=== PATIENT | male | born 1955 | race Caucasian/White ===

== ENCOUNTER 2020-07-21 08:40 | Day surgery (SDC) | payer BC ==
[~2020-07-21] VITALS: Ht 172.7 cm; Wt 87.8 kg
[~2020-07-21 08:40] MED LIST: AMLO10 PO; ATEN25 PO; ATEN50 PO; OMEP20ER PO; POTCIT10 PO; TAMS.4ER PO
--- NOTE | 2020-07-21 14:37 | NUR ---
PT SITTING UP IN BED, A/O X 4, PLEASANT/COOPERATIVE, DENIES PAIN, IS ABLE TO LIFT LEG/WIGGLE TOES AND FEET, FULL SENSATION. PT TOLERATING PO INTAKE. IS ORIENTED TO ROOM/CALL LIGHT. POST OP VS COMMENCED AND STABLE. OPERATIVE SITE C/D/I WITH JONES WRAP, NO SHADOWING. CRYO/TEDS/PAS IN PLACE.
--- NOTE | 2020-07-21 15:42 | NUR ---
PT in with patient and spouse.
--- NOTE | 2020-07-21 17:08 | NUR ---
PT has worked with physical therapy with spouse present. PT is tolerating PO intake. post op VSS and continuining. Operative limb/site WNL, warm/pink to baseline, dressing c/d/i. pt sitting in chair with cryo in place.
[2020-07-22 04:50] LABS: BASOPHILS ABSOLUTE AUTO 0.02 K/mm3 (0.00-0.23); BASOPHILS PERCENT AUTO 0 % (0-2); EOSINOPHILS ABSOLUTE AUTO 0.01 K/mm3 (0.00-0.68); EOSINOPHILS PERCENT AUTO 0 % (0-6); Hematocrit 38.1 % (37.0-53.0); Hemoglobin 13.5 g/dL (13.5-17.5); IMMATURE GRAN ABSOLUTE AUTO 0.06 K/mm3 (0.00-0.10); IMMATURE GRAN PERCENT AUTO 1 % (0-1); LYMPHOCYTES ABSOLUTE AUTO 1.24 K/mm3 (0.84-5.20); LYMPHOCYTES PERCENT AUTO 10 % (21-46); MONOCYTES ABSOLUTE AUTO 1.04 K/mm3 (0.16-1.47); MONOCYTES PERCENT AUTO 8 % (4-13); Mean Corpuscular HGB 29.9 pg (26.0-34.0); Mean Corpuscular HGB Conc 35.4 g/dL (31.5-36.5); Mean Corpuscular Volume 85 fL (80-100); Mean Platelet Volume 10.6 fL (9.1-12.4); NEUTROPHILS ABSOLUTE AUTO 10.55 K/mm3 (1.96-9.15); NEUTROPHILS PERCENT AUTO 82 % (41-73); Platelet Count 223 K/mm3 (150-400); RDW Coefficient Variation 13.3 % (11.7-14.2); RDW Standard Deviation 41.3 fL (35.1-46.3); Red Blood Cell Count 4.51 M/mm3 (4.30-5.90); White Blood Cell Count 12.92 K/mm3 (4.00-11.30)
--- NOTE | 2020-07-22 04:56 | NUR ---
SHIFT SUMMARY SITTING UP IN CHAIR AT BEDSIDE WITH BLE ELEVAED, HAS NOT RESTED WELL THIS SHIFT. AAO X4, JHAVERI, FOLLOWS ALL COMMANDS. POD #1 FOR LEFT TKA. AREAS COVERED WITH JONES WRAP WITHOUT SHADOWING NOTED. CONTINENT OF BOWEL AND BLADDER, AMBULATES TO COMMODE WITH SBA USING FWW/GB. PAIN MANAGED PER EMAR. NO FURTHER CHANGES NOTED THIS SHIFT. DENIES FURTHER NEEDS AT THIS TIME. SAFETY MEASURES IN PLACE. WILL CONTINUE TO MONITOR AND ADDRESS CHANGES AND NEEDS THEY ARISE. WILL GIVE HAND OFF TO ONCOMING SHIFT USING SBAR DURING BEDSIDE REPORT.
[2020-07-22 05:06] LABS: Anion Gap 5 mmol/L (6-16); Blood Urea Nitrogen 16 mg/dL (8-24); Bun/Creatinine Ratio 17.8 (12.0-20.0); CO2, Blood 28 mmol/L (21-32); Calcium, Blood 8.4 mg/dL (8.5-10.1); Chloride, Blood 104 mmol/L (98-108); Glomerular Filtration Rate >60 (60-); Glucose, Blood 124 mg/dL (70-99); Potassium, Blood 3.8 mmol/L (3.5-5.5); Sodium, Blood 137 mmol/L (136-145)
[2020-07-22] MEDS ORDERED: ASPI81CH PO (09:30)
[2020-07-22] MEDS ORDERED: ROXICODONE5 MG PO (09:31)
[2020-07-22] MEDS ORDERED: PROM25 PO (09:32)
--- NOTE | 2020-07-22 10:09 | NUR ---
0950 PROVIDED PT W/ DISCHARGE INSTRUCTIONS AND TEACHING, PT D/C HOME W/ . I TRANSPORTED PT VIA WHEELCHAIR TO 'S VEHICLE AT THE SOUTH ENTRANCE. PT ENTERED VEHICLE SAFELY.
--- NOTE | 2020-07-22 16:19 | NUR ---
07/22/20 1619 Sary Corona VERIFICATIONS: EDIT CHART.
== END 2020-07-22 09:58 | disposition home or self-care (01) ==
LOC: ORSCMMR 08:40 → SURS 13:29 → ORSCMMR 14:45 → ORD 14:45 → ORSCMMR 07-22 09:58 → SURS 07-22 09:58
PROVIDERS: Orthopaedic Surgery
PROC: 8E0YXBZ Computer Assisted Procedure of Lower Extremity (ICD-10-PCS; principal; 2020-07-21 11:00)
PROC: 0SRD0J9 Replacement of Left Knee Joint with Synthetic Substitute, Cemented, Open Approach (ICD-10-PCS; principal; 2020-07-21 11:00)
DX: M17.12 Unilateral primary osteoarthritis, left knee (principal); I10 Essential (primary) hypertension; K21.9 Gastro-esophageal reflux disease without esophagitis; E78.5 Hyperlipidemia, unspecified; Z79.899 Other long term (current) drug therapy
CPT/HCPCS: 36415; 73560-LT; 80048; 83735; 85025; 97110; 97116; 97162; A9270; C1713; C1776; J0171; J0690; J0735; J1100; J1885; J2250; J2370; J2405; J2704; J2795; J3010; J7120

== ENCOUNTER 2020-10-16 07:09 | Emergency (ER) | payer MEDICARE ==
[~2020-10-16] VITALS: Ht 175.3 cm; Wt 87.1 kg
[~2020-10-16 07:09] MED LIST changes: +ASPI81CH PO; +PROM25 PO; +ROXICODONE5 MG PO
[2020-10-16 08:18] LABS: Source, Urine Clean Catch
[2020-10-16 08:31] LABS: BASOPHILS ABSOLUTE AUTO 0.04 K/mm3 (0.00-0.23); BASOPHILS PERCENT AUTO 1 % (0-2); EOSINOPHILS ABSOLUTE AUTO 0.24 K/mm3 (0.00-0.68); EOSINOPHILS PERCENT AUTO 4 % (0-6); Hematocrit 46.8 % (37.0-53.0); Hemoglobin 16.2 g/dL (13.5-17.5); IMMATURE GRAN ABSOLUTE AUTO 0.01 K/mm3 (0.00-0.10); IMMATURE GRAN PERCENT AUTO 0 % (0-1); LYMPHOCYTES ABSOLUTE AUTO 1.92 K/mm3 (0.84-5.20); LYMPHOCYTES PERCENT AUTO 29 % (21-46); MONOCYTES ABSOLUTE AUTO 0.68 K/mm3 (0.16-1.47); MONOCYTES PERCENT AUTO 10 % (4-13); Mean Corpuscular HGB 29.6 pg (26.0-34.0); Mean Corpuscular HGB Conc 34.6 g/dL (31.5-36.5); Mean Corpuscular Volume 85 fL (80-100); Mean Platelet Volume 10.5 fL (9.1-12.4); NEUTROPHILS ABSOLUTE AUTO 3.85 K/mm3 (1.96-9.15); NEUTROPHILS PERCENT AUTO 57 % (41-73); Platelet Count 262 K/mm3 (150-400); RDW Coefficient Variation 13.1 % (11.7-14.2); RDW Standard Deviation 40.8 fL (35.1-46.3); Red Blood Cell Count 5.48 M/mm3 (4.30-5.90); White Blood Cell Count 6.74 K/mm3 (4.00-11.30)
[2020-10-16 08:34] LABS: Appearance, Urine Clear (Clear); Bilirubin, Urine Neg (Neg); Blood, Urine 1+ (Neg); Color, Urine Yellow (P-Yellow); Glucose Qualitative, Urine Neg (Neg); Ketones, Urine Neg (Neg); Leukocyte Esterase, Urine 1+ (Neg); Nitrite, Urine Neg (Neg); Protein, Urine 3+ (Neg); Specific Gravity, Urine 1.015 (1.003-1.022); Urobilinogen, Urine NORM (Normal)
[2020-10-16 08:52] LABS: Alanine Aminotransfer (ALT/SGP 35 U/L (12-78); Albumin, Blood 3.6 g/dL (3.4-5.0); Albumin/Globulin Ratio 0.8 (0.8-1.8); Alk Phos 99 U/L (50-136); Anion Gap 6 mmol/L (6-16); Aspartate Aminotrans (AST/SGOT 16 U/L (12-37); Bilirubin, Total 0.9 mg/dL (0.1-1.0); Blood Urea Nitrogen 9 mg/dL (8-24); Bun/Creatinine Ratio 10.5 (12.0-20.0); CO2, Blood 27 mmol/L (21-32); Calcium, Blood 8.9 mg/dL (8.5-10.1); Chloride, Blood 107 mmol/L (98-108); Creatinine, Blood 0.85 mg/dL (0.60-1.20); Globulin, Blood 4.4 g/dL (2.2-4.0); Glomerular Filtration Rate >60 (60-); Glucose, Blood 107 mg/dL (70-99); Potassium, Blood 3.6 mmol/L (3.5-5.5); Sodium, Blood 140 mmol/L (136-145); Troponin I <0.015 ng/mL (0.000-0.040)
[2020-10-16 08:56] LABS: Bacteria Rare /hpf; Squamous Epithelial Cells Not Seen /hpf (Few)
== END 2020-10-16 10:03 | disposition home or self-care (01) ==
LOC: ER 07:09
PROVIDERS: Emergency Medicine
DX: I49.3 Ventricular premature depolarization (principal); R07.9 Chest pain, unspecified; I10 Essential (primary) hypertension; Z88.6 Allergy status to analgesic agent; Z87.891 Personal history of nicotine dependence
CPT/HCPCS: 36415; 71045; 80053; 81001; 84484; 85025; 87086; 93005; 93010; 99285-25

== ENCOUNTER → 2020-10-27 | Outpatient (CLI) | payer MEDICARE ==
[2020-10-27 16:41] LABS: Appearance, Urine Clear (Clear); Bilirubin, Urine Neg (Neg); Blood, Urine 2+ (Neg); Color, Urine Yellow (P-Yellow); Glucose Qualitative, Urine Neg (Neg); Ketones, Urine Neg (Neg); Leukocyte Esterase, Urine 1+ (Neg); Nitrite, Urine Neg (Neg); Protein, Urine 3+ (Neg); Urobilinogen, Urine NORM (Normal)
[2020-10-27 17:13] LABS: Bacteria Mod /hpf; Red Blood Cells, Urine 0-2 /hpf (0-2); Squamous Epithelial Cells Rare /hpf (Few)
== END | disposition home or self-care (01) ==
LOC: LAB SHORT 14:20 → LAB 14:20
PROVIDERS: Family Medicine
DX: R31.9 Hematuria, unspecified (principal)
CPT/HCPCS: 81001; 87086

== ENCOUNTER → 2022-03-21 | Outpatient (CLI) | payer BC ==
[2022-03-21 10:40] LABS: Phosphorus, Urine 38.2 mg/dL (20.0-60.0)
[2022-03-21 10:54] LABS: Uric Acid, Urine 31.6 mg/dL (7.5-49.5)
[2022-03-21 11:05] LABS: Calcium, Urine 15.3 mg/dL (< 17.5); Calcium, Urine Calculation 443.7 mg/24hrs (42.0-353.0); Creatinine Urine 56.9 mg/dL (27.00-270.00); Protein, Urine Quantitative 38.2 mg/dL (0.0-11.9)
== END | disposition home or self-care (01) ==
LOC: LAB SHORT 07:00 → LAB 07:00
PROVIDERS: Internal Medicine Nephrology
DX: N18.2 Chronic kidney disease, stage 2 (mild) (principal); D63.1 Anemia in chronic kidney disease; N25.81 Secondary hyperparathyroidism of renal origin; E29.1 Testicular hypofunction; R76.9 Abnormal immunological finding in serum, unspecified; R94.5 Abnormal results of liver function studies; R94.6 Abnormal results of thyroid function studies
CPT/HCPCS: 81050; 82043; 82340; 82507; 82570; 83945; 84105; 84133; 84156; 84300; 84560

== ENCOUNTER → 2022-04-23 | Outpatient (CLI) | payer BC, OTHER ==
[2022-04-23 16:36] LABS: Bun/Creatinine Ratio 15.1 (12.0-20.0); Calcium, Blood 9.3 mg/dL (8.5-10.1); Creatinine, Blood 0.86 mg/dL (0.60-1.20); Potassium, Blood 3.5 mmol/L (3.5-5.5)
== END | disposition home or self-care (01) ==
LOC: LAB SHORT 16:22 → LAB 16:22
PROVIDERS: Physician Assistant Medical
DX: R07.89 Other chest pain (principal)
CPT/HCPCS: 80048; 84484

== ENCOUNTER → 2023-04-27 | Outpatient (CLI) | payer BC, OTHER ==
[2023-04-27 12:15] LABS: Creatinine Urine 73.6 mg/dL (27.00-270.00); Protein, Urine Quantitative 53.1 mg/dL (0.0-11.9)
== END ==
LOC: LAB SHORT 09:06 → LAB FUT 04-22 10:20
PROVIDERS: Internal Medicine Nephrology
DX: N18.30 Chronic kidney disease, stage 3 unspecified (principal); D63.1 Anemia in chronic kidney disease; N25.81 Secondary hyperparathyroidism of renal origin; E55.9 Vitamin D deficiency, unspecified; E29.1 Testicular hypofunction; R76.9 Abnormal immunological finding in serum, unspecified; R94.5 Abnormal results of liver function studies; G60.9 Hereditary and idiopathic neuropathy, unspecified
CPT/HCPCS: 81050; 82043; 82570; 84156

== ENCOUNTER → 2023-06-22 | Outpatient (CLI) | payer BC, OTHER ==
[2023-06-22 11:26] LABS: Creatinine Urine 65.6 mg/dL (27.00-270.00); Protein, Urine Quantitative 37.1 mg/dL (0.0-11.9)
== END ==
LOC: LAB SHORT 08:40 → LAB 08:40
PROVIDERS: Internal Medicine Nephrology
DX: N18.30 Chronic kidney disease, stage 3 unspecified (principal); D63.1 Anemia in chronic kidney disease; N25.81 Secondary hyperparathyroidism of renal origin; E55.9 Vitamin D deficiency, unspecified; E78.00 Pure hypercholesterolemia, unspecified; R76.9 Abnormal immunological finding in serum, unspecified; R94.5 Abnormal results of liver function studies; R94.6 Abnormal results of thyroid function studies; D51.8 Other vitamin B12 deficiency anemias
CPT/HCPCS: 81050; 82043; 82570; 84156

== ENCOUNTER 2024-02-12 06:41 | Day surgery (SDC) | payer OTHER ==
[~2024-02-12] VITALS: Ht 175.3 cm; Wt 91.0 kg
[2024-02-12] VITALS (11 sets, daily range): BP systolic 139–173; BP diastolic 77–100
[~2024-02-12 06:41] MED LIST changes: +[UNRECOGNIZED DRUG - OTHER] PO
[2024-02-12] MEDS ORDERED: Heparin Sodium 1000 Units/ML 10ML MDV ONE ×3 (06:50→09:48)
[2024-02-12] MEDS ORDERED: NS 1,000 ML IV ONE ×2 (06:50→07:36)
[2024-02-12] MEDS ORDERED: MAGNESIUM COMP300 MG PO (07:18)
[2024-02-12] MEDS ORDERED: FISH OIL 1,0001 EA10 PO (07:20)
[2024-02-12] MEDS ORDERED: Midazolam HCl 1MG / ML 2ML Vial ONE (07:36)
[2024-02-12] MEDS ORDERED: FentaNYL Citrate 50 MCG/ML 2 ML Injection ONE (07:36)
[2024-02-12 07:51] LABS: Hematocrit 44.5 % (37.0-53.0); Hemoglobin 16.2 g/dL (13.5-17.5); Mean Corpuscular HGB 30.6 pg (26.0-34.0); Mean Corpuscular HGB Conc 36.4 g/dL (31.5-36.5); Mean Corpuscular Volume 84 fL (80-100); Mean Platelet Volume 10.4 fL (9.1-12.4); Platelet Count 205 K/mm3 (150-400); RDW Coefficient Variation 13.3 % (11.7-14.2); Red Blood Cell Count 5.29 M/mm3 (4.30-5.90); White Blood Cell Count 4.99 K/mm3 (4.00-11.30)
[2024-02-12 08:02] LABS: International Normalized Ratio 0.96; Prothrombin Time Results 10.3 Sec (9.7-11.5)
[2024-02-12 08:06] LABS: Bun/Creatinine Ratio 14.2 (12.0-20.0); Calcium, Blood 8.9 mg/dL (8.5-10.1); Creatinine, Blood 0.92 mg/dL (0.60-1.20); Potassium, Blood 3.6 mmol/L (3.5-5.5)
[2024-02-12] MEDS ORDERED: NS 50 ML IV ONE (08:38)
[2024-02-12] MEDS ORDERED: CeFAZolin Sodium 2,000 MG VIAL ONE (08:38)
[2024-02-12] MEDS ORDERED: Nitroglycerin 2 MG/20 ML BTL ONE (09:11)
[2024-02-12] MEDS ORDERED: Lidocaine 2%-Epineph 1:100000 20 ML MDV ONE (10:06)
[2024-02-12] MEDS ORDERED: HydrALAZINE HCl 20 MG / ML 1ML Vial ONE ×2 (10:06→13:26)
--- NOTE | 2024-02-12 11:21 | NUR ---
DR DOMINGO IN ROOM DISCUSSING PLAN OF CARE. VSS. HEMAN. PT R FEMORAL SITE REMAINS C/D/I. S/O AT BEDSIDE
--- NOTE | 2024-02-12 12:20 | NUR ---
MANUAL PRESSURE HELD FOR 20 MINUTES TO R FEMORAL SITE AFTER BLEEDING NOTED. HEMOSTASIS OBTAINED. VSS. NADN. PT RESTING COMFORTABLY. PT S/O AT BEDSIDE. CALL LIGHT WITHIN REACH.
--- NOTE | 2024-02-12 13:04 | NUR ---
GROIN SOFT AND NON-TENDER PER PT. NO BLEEDING NOTED.
--- NOTE | 2024-02-12 13:40 | NUR ---
DR DOMINGO IN ROOM DISCUSSING PLAN OF CARE. PT R FEMORAL SITE REMAINS CLEAR. NO BLEEDING OR HEMATOMA NOTED. VSS. NADN. CONTINUING TO MONITOR
--- NOTE | 2024-02-12 14:01 | NUR ---
PT AND S/O VERBALIZES UNDERSTANDING WRITTEN AMD VERBAL INSTRUCTIONS. DENIES QUESTIONS. VSS. NADN. PT R FEMORAL SITE REMAINS C/D/I. NO BLEEDING OR HEMATOMA NOTED. PT IV DC'D. CATH INTACT. PRESSURE DSG APPLIED. PT DRESSES SELF WITHOUT DIFF. PT DC TO HOME VIA S/O BY WC.
== END 2024-02-12 14:10 | disposition home or self-care (01) ==
LOC: MHTC 06:41
PROVIDERS: Student in an Organized Health Care Education/Training Program
DX: M17.11 Unilateral primary osteoarthritis, right knee (principal); G89.29 Other chronic pain; Z87.891 Personal history of nicotine dependence; Z88.5 Allergy status to narcotic agent; Z91.048 Other nonmedicinal substance allergy status; Z79.899 Other long term (current) drug therapy
CPT/HCPCS: 37242; 75710; 76937; 80048; 85027; 85610; 99152; 99153; C1760; C1769; C1887; J0360; J0690; J1644; J2250; J3010; J7030; Q9967

== ENCOUNTER 2024-03-24 08:58 | Day surgery (SDC) | payer OTHER ==
[2024-03-24] VITALS (10 sets, daily range): BP systolic 127–146; BP diastolic 85–98
[~2024-03-24] VITALS: Ht 175.3 cm; Wt 91.4 kg
[~2024-03-24 08:58] MED LIST changes: +FISH OIL 1,0001 EA10 PO; +MAGNESIUM COMP300 MG PO
[2024-03-24] MEDS ORDERED: ASPI81CH PO (09:17)
[2024-03-24] MEDS ORDERED: HYDCHL25 PO (09:19)
[2024-03-24] MEDS ORDERED: Verapamil HCL 2.5 MG/ML 2ML Injection ONE (09:22)
[2024-03-24] MEDS ORDERED: Heparin Sodium 1000 Units/ML 10ML MDV ONE ×2 (09:23→10:24)
[2024-03-24] MEDS ORDERED: Nitroglycerin 2 MG/20 ML BTL ONE (09:23)
[2024-03-24] MEDS ORDERED: NS 250 ML IV ONE (09:23)
[2024-03-24] MEDS ORDERED: NS 1,000 ML IV ONE ×2 (09:23→09:44)
[2024-03-24] MEDS ORDERED: Aspirin 325 MG Tab ONE (09:30)
[2024-03-24] MEDS ORDERED: FentaNYL Citrate 50 MCG/ML 2 ML Injection ONE (09:44)
[2024-03-24] MEDS ORDERED: Midazolam HCl 1MG / ML 2ML Vial ONE (09:44)
--- NOTE | 2024-03-24 10:59 | NUR ---
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 PT AWAKE AND ALERT UP IN CHAIR. PT DENIES COMPLAINTS. RIGHT TR BAND SITE REVIEWED W TECH. 8CC TO BAND. SITE STABLE W/O SWELLING, TENDERNESS, OR BLEEDING. PATIENT SIPPING ON COFFEE.
--- NOTE | 2024-03-24 11:20 | NUR ---
dr dunbar at bedside discussing porcedural finding and future plan of care w/ pt.
--- NOTE | 2024-03-24 12:47 | NUR ---
AIR REMOVED FROM TR BAND OVER 30MIN. AIR COMPLETELY REMOVED BY 1220. VERBAL AND WRITTEN DISCHARGE INFORMATION GIVEN TO PATIENT AND PT'S WITH CLEAR UNDERSTANDING. BIO PATCH PLACED PER DR BOYCE FOR ECTOPY. VSS. PT MINNIE FLUIDS/FOOD. PT DENIES COMPLAINTS.
--- NOTE | 2024-03-24 13:10 | NUR ---
TR BAND REMOVED, SITE STABLE W/O HEMATOMA, SWELLING, TENDERNESS, OR BLEEDING. DRSG PLACED. WRIST IMMOBILIZER PLACED. PT DC'D IN STABLE CONDITION IN CARE OF PT'S AT 1310.
== END 2024-03-24 13:24 | disposition home or self-care (01) ==
LOC: MHTC 08:58
DX: I25.118 Atherosclerotic heart disease of native coronary artery with other forms of angina pectoris (principal); I47.20 Ventricular tachycardia, unspecified; I10 Essential (primary) hypertension; E78.5 Hyperlipidemia, unspecified; Z88.5 Allergy status to narcotic agent; Z88.8 Allergy status to other drugs, medicaments and biological substances
CPT/HCPCS: 36415; 76937; 80048; 85007; 85027; 85610; 93246; 93454; 93458; 99152; 99153; A9270; C1769; C1887; C1894; J1644; J2250; J3010; J7030; J7050; Q9967

== ENCOUNTER → 2024-05-05 | Outpatient (CLI) | payer OTHER ==
[~2024-05-05] MED LIST changes: +ATOR40TA PO; +HYDCHL12.5 PO; +HYDCHL25 PO
[2024-05-05 16:20] LABS: Creatinine Urine 64.4 mg/dL (27.00-270.00); Protein, Urine Quantitative 22.3 mg/dL (0.0-11.9)
== END ==
LOC: LAB 07:00 → LAB SHORT 07:00
PROVIDERS: Internal Medicine Nephrology
DX: D51.8 Other vitamin B12 deficiency anemias (principal); N18.4 Chronic kidney disease, stage 4 (severe); D63.1 Anemia in chronic kidney disease; N25.81 Secondary hyperparathyroidism of renal origin; E55.9 Vitamin D deficiency, unspecified; E78.00 Pure hypercholesterolemia, unspecified; R76.9 Abnormal immunological finding in serum, unspecified; R94.5 Abnormal results of liver function studies; G50.9 Disorder of trigeminal nerve, unspecified; D50.9 Iron deficiency anemia, unspecified
CPT/HCPCS: 81050; 82043; 82570; 84156

== ENCOUNTER 2024-05-06 06:39 | Day surgery (SDC) | payer OTHER ==
[2024-05-06] VITALS (17 sets, daily range): BP systolic 145–179; BP diastolic 80–108
[~2024-05-06] VITALS: Ht 175.3 cm; Wt 88.9 kg
[~2024-05-06 06:39] MED LIST changes: -HYDCHL12.5 PO
[2024-05-06] MEDS ORDERED: HYDCHL12.5 PO (06:57)
[2024-05-06] MEDS ORDERED: NS 100 ML IV ONE (07:05)
[2024-05-06] MEDS ORDERED: NS 250 ML IV ONE (07:05)
[2024-05-06] MEDS ORDERED: Heparin Sodium 1000 Units/ML 10ML MDV ONE (07:05)
[2024-05-06] MEDS ORDERED: NS 1,000 ML IV ONE ×2 (07:05→07:27)
[2024-05-06] MEDS ORDERED: FentaNYL Citrate 50 MCG/ML 2 ML Injection ONE (07:27)
[2024-05-06] MEDS ORDERED: Midazolam HCl 1MG / ML 2ML Vial ONE (07:27)
--- NOTE | 2024-05-06 09:15 | NUR ---
PATIENT TO RECOVERY ROOM AT 0904 S/P RIGHT GENICULATE ARTERY EMBOLIZATION. PROCEDURE UNSUCCESSFUL, UNABLE TO FIND PATHWAY TO PAIN AREA. PT AWAKE AND ALERT, DENIES COMPLAINTS. PT SUPINE. RIGHT GROIN WITH ANGIOSEAL. RIGHT GROIN SOFT WITHOUT HEMATOMA, TENDERNESS, BLEEDING, SWELLING. PT BRADYCARDIC IN HIGH 40'S, PT IN 50'S PRIOR TO PROCEDURE. BP SLIGHTLY HYPERTENSIVE BUT STABLE W SBP 150'S. SATS >90% ON RA. +2 PULSES TO BLE. PT'S AT BEDSIDE.
[2024-05-06] MEDS ORDERED: HydrALAZINE HCl 20 MG / ML 1ML Vial ONE (11:38)
[2024-05-06] MEDS ORDERED: HydrALAZINE HCl 20 MG / ML 1ML Vial IV ONE (11:55)
--- NOTE | 2024-05-06 12:03 | NUR ---
GROIN CHECKED EVERY 15MIN WITHOUT CHANGE TO GROIN. PT UP TO BATHROOM AT 1105. GROIN STABLE AFTER USING RESTROOM. VERBAL AND WRITTEN DC INSTRUCTIONS GIVEN WITH CLEAR UNDERSTANDING TO PATIENT AND PATIENTS AT 1110. IV DC'D INTACT AT 1115. GROIN CHECKED PRIOR TO PATIENT DRESSING. SMALL HEMATOMA NOTED. PRESSURE HELD OVER SITE. DR DOMINGO NOTIFIED. DR DOMINGO AT BEDSIDE, SITE CHECKED WITH ULTRASOUND. PRESSURE HELD BY DR DOMINGO. PT C/O GROIN DISCOMFORT /10. BP ELEVATED. IV RESTARTED TO LEFT AC. HYDRALAZINE 5MG IV GIVEN PER DR DOMINGO AT 1150. RIGHT GROIN SOFT WITH SMALL KNOT POST HOLD. DR DOMINGO TO CHECK GROIN AGAIN AT 1215. BP 154/93.
--- NOTE | 2024-05-06 13:08 | NUR ---
NO CHANGE TO RIGHT GROIN SITE. SMALL KNOT HAS NOT CHANGED IN SIZE. AREA SURROUNDING SMALL KNOT SOFT.
--- NOTE | 2024-05-06 13:58 | NUR ---
PATIENT HAS HAD BED AT 30 DEGREES X 30MIN, RIGHT GROIN REMAINS UNCHANGED. SBP'S 150'S. HR HIGH 40'S TO 50'S. PATIENT C/O MILD TENDERNESS THAT HAS IMPROVED FROM A 5 TO A 3/10.
--- NOTE | 2024-05-06 14:08 | NUR ---
RIGHT GROIN REMAINS UNCHANGED. PT UP TO CHAIR W/O ISSUES AT 1409
--- NOTE | 2024-05-06 14:41 | NUR ---
PT UP TO CHAIR, RIGHT GROIN REMAINED STABLE. DR DOMINGO UPDATED. OKAY FOR PT TO BE DISCHARGED HOME PER DR DOMINGO. PT DRESSED, THEN SITE CHECKED AGAIN AFTER PT DRESSED. RIGHT GROIN REMAINS SOFT AND UNCHANGED. IV DC'D INTACT. PT ESCORTED OUT TO CAR VIA WHEELCHAIR. PT'S DRIVING HIM HOME.
== END 2024-05-06 23:00 | disposition home or self-care (01) ==
LOC: MHTC 06:39
DX: M25.561 Pain in right knee (principal); G89.29 Other chronic pain; Z87.891 Personal history of nicotine dependence; Z79.82 Long term (current) use of aspirin; Z79.899 Other long term (current) drug therapy; Z88.5 Allergy status to narcotic agent; Z91.048 Other nonmedicinal substance allergy status
CPT/HCPCS: 75710; 75736; 76937; 99152; 99153; C1760; C1769; C1887; J0360; J1644; J2250; J3010; J7030; J7050; Q9967

== ENCOUNTER 2024-05-15 10:06 | Day surgery (SDC) | payer OTHER ==
[~2024-05-15] VITALS: Ht 175.3 cm; Wt 88.5 kg
[~2024-05-15 10:06] MED LIST changes: +Balanced Salt Epinephrine Irrigation Solution 500 mL IR SCH; +HYDCHL12.5 PO; +Lidocaine HCl/Pf 1% 5 ML VIAL XX SCH; +Moxifloxacin HCL 0.5 MG/0.1 ML 0.4MLSYR RIGHTEYE SCH; +PHENYLEPHRINE\\TROPICAMIDE\\TETRACAINE OPHTHALMIC DILATING SOLN RIGHTEYE PRN; +Povidone-Iodine 450 DROP/30 ML Solution ONE; +Povidone-Iodine 450 DROP/30 ML Solution RIGHTEYE SCH; +Tetracaine HCl/Pf 0.5% Opth Soln 4 ml ONE; +Triamcinolone Inj Susp 40 MG / ML 1ML Vial INJ SCH; +Triamcinolone Inj Susp 40 MG / ML 1ML Vial ONE
[2024-05-15] MEDS ORDERED: XANAX0.25 MG PO (10:38)
[2024-05-15] MEDS ORDERED: NS 500 ML IV ONE (10:53)
[2024-05-15] MEDS ORDERED: FentaNYL Citrate 50 MCG/ML 2 ML Injection ONE (11:03)
[2024-05-15] MEDS ORDERED: Midazolam HCl 1MG / ML 2ML Vial ONE (11:03)
[2024-05-15] MEDS ORDERED: Tetracaine HCl 0.5% Opth Soln 15 ml RIGHTEYE ONE (11:10)
[2024-05-15 11:29] VITALS: BP 141/87
--- NOTE | 2024-05-15 11:51 | NUR ---
05/15/24 1151 KARINE HOOKER BROUGHT BACK TO GO OVER DC INSTRUCTIONS PER PT REQUEST.
== END 2024-05-15 11:51 | disposition home or self-care (01) ==
LOC: ORSCSDS 10:06
PROVIDERS: Ophthalmology
PROC: 08RJ3JZ Replacement of Right Lens with Synthetic Substitute, Percutaneous Approach (ICD-10-PCS; principal; 2024-05-15 11:30)
DX: H25.813 Combined forms of age-related cataract, bilateral (principal); H40.009 Preglaucoma, unspecified, unspecified eye; E78.5 Hyperlipidemia, unspecified; I10 Essential (primary) hypertension; K21.9 Gastro-esophageal reflux disease without esophagitis; Z87.891 Personal history of nicotine dependence; Z79.899 Other long term (current) drug therapy
CPT/HCPCS: J2250; J3010; J3301; V2632

== ENCOUNTER 2024-05-22 09:57 | Day surgery (SDC) | payer OTHER ==
[~2024-05-22] VITALS: Ht 175.3 cm; Wt 87.5 kg
[~2024-05-22 09:57] MED LIST changes: +Moxifloxacin HCL 0.5 MG/0.1 ML 0.4MLSYR LEFTEYE SCH; -Moxifloxacin HCL 0.5 MG/0.1 ML 0.4MLSYR RIGHTEYE SCH; +PHENYLEPHRINE\\TROPICAMIDE\\TETRACAINE OPHTHALMIC DILATING SOLN LEFTEYE PRN; -PHENYLEPHRINE\\TROPICAMIDE\\TETRACAINE OPHTHALMIC DILATING SOLN RIGHTEYE PRN; +Povidone-Iodine 450 DROP/30 ML Solution LEFTEYE SCH; -Povidone-Iodine 450 DROP/30 ML Solution RIGHTEYE SCH; +XANAX0.25 MG PO
--- NOTE | 2024-05-22 10:58 | NUR ---
05/22/24 1058 Lobito Decker TETRACAINE ADMINISTERED AT 1041, PLEDGET PLACED AT 1042.
[2024-05-22] MEDS ORDERED: FentaNYL Citrate 50 MCG/ML 2 ML Injection ONE (11:27)
[2024-05-22] MEDS ORDERED: Midazolam HCl 1MG / ML 2ML Vial ONE (11:27)
[2024-05-22 11:49] VITALS: BP 134/81
== END 2024-05-22 12:07 | disposition home or self-care (01) ==
LOC: ORSCSDS 09:57
PROVIDERS: Ophthalmology
PROC: 08RK3JZ Replacement of Left Lens with Synthetic Substitute, Percutaneous Approach (ICD-10-PCS; principal; 2024-05-22 11:30)
DX: H25.812 Combined forms of age-related cataract, left eye (principal); Z96.1 Presence of intraocular lens; H04.123 Dry eye syndrome of bilateral lacrimal glands; I10 Essential (primary) hypertension; I25.10 Atherosclerotic heart disease of native coronary artery without angina pectoris; K21.9 Gastro-esophageal reflux disease without esophagitis; Z87.891 Personal history of nicotine dependence; Z79.82 Long term (current) use of aspirin; Z79.899 Other long term (current) drug therapy
CPT/HCPCS: J2250; J3010; J3301; V2632

== ENCOUNTER → 2024-09-15 | Outpatient (CLI) | payer OTHER ==
[~2024-09-15] MED LIST changes: -Balanced Salt Epinephrine Irrigation Solution 500 mL IR SCH; -Lidocaine HCl/Pf 1% 5 ML VIAL XX SCH; -Moxifloxacin HCL 0.5 MG/0.1 ML 0.4MLSYR LEFTEYE SCH; -PHENYLEPHRINE\\TROPICAMIDE\\TETRACAINE OPHTHALMIC DILATING SOLN LEFTEYE PRN; -Povidone-Iodine 450 DROP/30 ML Solution LEFTEYE SCH; -Povidone-Iodine 450 DROP/30 ML Solution ONE; -Tetracaine HCl/Pf 0.5% Opth Soln 4 ml ONE; -Triamcinolone Inj Susp 40 MG / ML 1ML Vial INJ SCH; -Triamcinolone Inj Susp 40 MG / ML 1ML Vial ONE
[2024-09-15 21:08] LABS: Microalbumin, Urine Quant. 126.0 mg/L (0.000-20.000); Protein, Urine Quantitative 20.2 mg/dL (0.0-11.9); Sodium, Urine 37.0 mmol/L (20-110)
== END ==
LOC: LAB SHORT 08:00 → LAB 08:00 → LAB FUT 09-12 08:50
PROVIDERS: Internal Medicine Nephrology
DX: N18.30 Chronic kidney disease, stage 3 unspecified (principal); D63.1 Anemia in chronic kidney disease
CPT/HCPCS: 82043; 84156; 84300